=== PATIENT | male | born 1960 | race Asian ===

== ENCOUNTER → 2019-04-03 09:03 | Outpatient (CLI) | payer OTHER, SELFPAY ==
--- NOTE | 2019-04-03 | DI.CT.S_ITS ---
PROCEDURE: CT CHEST ABD PEL W CON INDICATIONS: PROSTATE CANCER TECHNIQUE: After the administration of oral and intravenous contrast, 5 mm thick sections acquired from the lung apices to the symphysis. 5 mm coronal and sagittal reformats were performed, with additional 7 mm coronal MIP reformats through the lungs. For radiation dose reduction, the following was used: automated exposure control, adjustment of mA and/or kV according to patient size. COMPARISON: MR, PELVIS W&W/O CONTRAST, 04/16/2013, 12:46. [facility], CR, CHEST 2 VIEW, 03/26/2012, 11:04. [facility], CT, CT IVP, 06/25/2018, 13:01. FINDINGS: Image quality: Excellent. CHEST: Lungs and pleura: No acute airspace opacities. No pleural effusions or pneumothorax. Central and peripheral airways appear patent and normal in caliber. Mediastinum: Heart size is normal. Trace pericardial effusion or pericardial thickening in anterior pericardium. No mediastinal or hilar adenopathy by size criteria. Thoracic aorta and central pulmonary arteries are normal in size. Esophagus is normal in caliber. Tiny hiatal hernia. Chest wall: No axillary or supraclavicular adenopathy by size criteria. Thyroid gland is normal. ABDOMEN: Solid organs: Liver is normal in size and enhancement. Gallbladder is normal. Biliary system is non dilated. Pancreas enhances normally. Spleen is normal in size and enhancement. No adrenal nodules. There are low density nodules in kidneys bilaterally, most likely diagnosis. Kidneys demonstrate normal size and enhancement, without hydronephrosis. Peritoneum and bowel: Bowel loops demonstrate normal wall thickness and caliber. No free fluid or air. Nodes and vessels: No retroperitoneal or mesenteric adenopathy by size criteria. Aorta and inferior vena cava are normal in size. Miscellaneous: No ventral hernias. PELVIS: Genitourinary: Bladder wall is thickened concentrically. Prostate is surgically absent. Miscellaneous: No inguinal hernias or adenopathy. Bones: No suspicious bony lesions. No vertebral body compression fractures. There is degenerative disc disease at L4-L5 with mild to moderate central canal stenosis. IMPRESSION: 1. Prostatectomy. No evidence for recurrent or metastatic disease. 2. Mild concentric bladder wall thickening may be secondary to chronic bladder outlet obstruction. 3. Bilateral low-density renal nodules are most likely renal cysts. 4. Trace pericardial effusion or pericardial thickening. Dictated by: Akash Serrano M.D. on 04/03/2019 at 12:12 Transcribed by: WARREN on 04/03/2019 at 12:26 Approved by: Akash Serrano M.D. on 04/03/2019 at 18:24
== END ==
PROVIDERS: PCP Internal Medicine; Visit Provider Urology
DX: C61 Malignant neoplasm of prostate (principal); N28.9 Disorder of kidney and ureter, unspecified
CPT/HCPCS: 71260; 74177; Q9967

== ENCOUNTER → 2019-04-05 09:23 | Outpatient (CLI) | payer OTHER, SELFPAY ==
--- NOTE | 2019-04-05 | DI.NM.S_ITS ---
PROCEDURE: NM BONE SCAN WHOLE BODY RADIOPHARMACEUTICAL: 21.1 mCi Tc-99m MDP IV. INDICATIONS: PROSTATE CANCER TECHNIQUE: Delayed whole-body scintigrams were obtained approximately 3-4 hours after intravenous injection of radiotracer. Anterior and posterior views were acquired from vertex to feet. COMPARISON: [facility], CT, CT CHEST ABD PEL W CON, 04/03/2019, 10:00. FINDINGS: No suspicious tracer activity. Bilateral knee and ankle tracer uptake is likely degenerative in nature. Physiologic tracer activity seen within the kidneys and bladder. IMPRESSION: No suspicious tracer activity. Dictated by: Mckay Maldonado M.D. on 04/05/2019 at 16:46 Approved by: Mckay Maldonado M.D. on 04/05/2019 at 16:53
== END ==
PROVIDERS: PCP Internal Medicine; Visit Provider Urology
DX: C61 Malignant neoplasm of prostate (principal)
CPT/HCPCS: 78306; A9503

== ENCOUNTER 2019-06-24 12:39 | Day surgery (SDC) | payer OTHER, SELFPAY ==
[2019-06-24] VITALS (8 sets, daily range): BP systolic 133–167; BP diastolic 67–104; PULSE 95–104; RESP 14–16; TEMP 36.1–36.5; O2SAT 92–99; BMI 31.2
--- NOTE | 2019-06-24 | PATH_ITS ---
[facility] Accession Number: [id number] . 01 Material submitted: . PART A: hepatic flexure - HEPATIC FLEXURE POLYP PART B: splenic flexure - SPLENIC FLEXURE POLYP 80 CM . 01 Clinical history: . SCREENING COLONOSCOPY ENCOUNTER FOR SCREENING FOR MALIGNANT NEOPLASM . 02 Diagnosis: A. Hepatic Flexure, Polyp: Tubular adenoma. . B. Splenic Flexure at 80 cm, Polyp: Colonic mucosa with prominent benign lymphoid aggregate. Negative for serrated lesion, dysplasia or malignancy. V 06/25/2019 1326 Local . 02 Electronically signed: . Maximus Reveles MD, PhD, Pathologist NPI- [id number] . 01 Gross description: . Part A: HEPATIC FLEXURE POLYP: Received in formalin is 1 fragment(s) of farrell, soft tissue measuring 1.1 x 0.4 x 0.3 cm which is entirely submitted and submitted entirely in 1 cassette(s) Part B: SPLENIC FLEXURE POLYP 80 CM: Received in formalin is 1 fragment(s) of farrell, soft tissue measuring 0.3 x 0.3 x 0.2 cm which is entirely submitted and submitted entirely in 1 cassette(s) /[facility] [place] 06/24/2019 2041 Local . 02 Pathologist provided ICD-10: D12.3, K63.5 . 02 CPT . 384873, [id number] Performed at: 01 [facility] [address] [place] [address], [place], [place] [id number] MD Mario Forde MD Phone: [phone] Performed at: [facility] [address] [place], [place] [id number] MD Jannie Johnson MD Phone: [phone]
[2019-06-24] MEDS: INSULIN ASPART 100 UNIT/ML 10ML VIAL SUBCUT (13:40)
[2019-06-24] MEDS: SODIUM CHLORIDE 0.9% 1,000 ML 200 ML IV (13:57)
--- NOTE | 2019-06-24 14:05 | SUR.PREOP ---
Dr Howell made aware of blood sugar of 260, insulin given as ordered, repeat CBG 255, no new orders recieved
--- NOTE | 2019-06-24 14:07 | PM.HP.1 ---
History of Present Illness History of Present Illness Date Patient Seen: 06/24/19 Time Patient Seen: 14:07 Chief complaint: [id number] SCREENING COLONOSCOPY Narrative: Asymptomatic patient here for a screening colonoscopy. He has had prior colonoscopy with no polyps discovered. Patient has well-controlled but rather severe diabetes type 2. Patient History Social History household members: spouse Family & Social History Social History: household members spouse Meds Home Medications and Allergies Home Medications Medication Instructions Recorded Confirmed Type MULTIVITAMIN (#MULTIPLE VITAMINS) 1 cap PO Q DAY #0 03/28/12 06/24/19 History atorvastatin 100 mg PO HS #0 03/28/12 06/24/19 History glipizide 10 mg PO Q DAY #0 03/28/12 06/24/19 History metformin [Glucophage XR] 500 mg PO BID #0 03/28/12 06/24/19 History venlafaxine [Effexor XR] 300 mg PO BID #0 03/28/12 History fenofibrate nanocrystallized 300 mg PO QDAY #0 05/10/17 06/24/19 History [Triglide] sennosides [senna] 50 mg PO BID PRN #0 05/10/17 06/24/19 History sitagliptin [Januvia] 100 mg PO QDAY #0 05/10/17 History trazodone 50 mg PO QDAY #0 05/10/17 History Lantus Solostar U-100 Insulin 25 unit SQ BID #0 05/12/17 06/24/19 History sitagliptin-metformin [Janumet] 1 tab PO BID #0 05/12/17 History amlodipine 10 mg PO DAILY 06/24/19 06/24/19 History insulin aspart U-100 [Novolog 8 unit SUBCUT BID 06/24/19 06/24/19 History Flexpen U-100 Insulin] Allergies Allergy/AdvReac Type Severity Reaction Status Date / Time No Known Drug Allergies Allergy Verified 06/24/19 08:47 Review of Systems Review of Systems ROS Unobtainable: All systems reviewed & are unremarkable except as noted in HPI and below Exam Vital Signs (past 8 hours): - 06/24/19 13:50 Temperature 97.7 F Pulse Rate 104 H Respiratory Rate 16 Blood Pressure 167/104 H Pulse Oximetry 99 Oxygen Delivery Method Room Air Narrative Exam Narrative: Patient is alert and oriented with no complaints Lungs are clear with no rales or wheezes Heart regular rhythm no murmur Abdomen soft no organomegaly no tenderness Rectal be done at time of colonoscopy Assessment & Plan Assessment & Plan narrative: Patient is here for screening colonoscopy his admission blood sugar was 260 and I gave him 5 units of rapidi acting insulin subcu and his sugar is coming down now it is 255 20 minutes after receiving his insulin dose. We will proceed with planned screening colonoscopy.
[2019-06-24] MEDS: fentaNYL 250 MCG/5 ML INJ IV (14:28)
[2019-06-24] MEDS: MIDAZOLAM 5 MG/5 ML VIAL IV (14:29)
--- NOTE | 2019-06-24 14:43 | PM.OP.ENDO ---
Operative Date/Time/Diagnoses Date of procedure: 06/24/19 Time of procedure: 14:43 Pre-op diagnosis: Screening colonoscopy Post-op diagnosis: other (Two polyps were identified 1 at the hepatic flexure proximally 7 mm in diameter excised and submitted 2nd was 3 mm in diameter at the splenic flexure approximately 80 cm also removed and submitted) Procedure & Clinicians Study performed: Total colonoscopy to the cecum with polypectomy at 80 cm splenic flexure and hepatic flexure Same procedure as scheduled: Yes Surgeon: Olaf Howell Procedure Notes SCOAP/Timeout: Was done Procedure in detail: The patient was properly identified during surgical pause throughout procedure he was given a total of 4 mg of Versed and 250 micro g of fentanyl and he remained comfortable. The flexible fiberoptic colonoscope was inserted transanally to the cecum. In the splenic flexure at approximately 80 cm there was a 3-4 mm polyp removed with the cold forceps and submitted. In the hepatic flexure there was a 7 mm polyp on a short stalk and it was removed with a cold snare. This polyp was also submitted. No other abnormalities were encountered. Patient tolerated this procedure very well. Scope withdrawal time: 15 Sedation minutes: 28 Findings: polyp Specimen(s): other (Two polyps 1 at 80 cm the other at the hepatic flexure were submitted) Complications: none Post-procedure Recommendations: Colonscopy in 3 years Disposition: PACU
--- NOTE | 2019-06-24 15:22 | SUR.PHASEII ---
Dr. Osorio notified pt's cbg 253, no new orders. Pt tolerating apple juice.
== END 2019-06-24 15:27 | disposition home or self-care (01) ==
PROVIDERS: PCP Internal Medicine; Visit Provider Surgery
PROC: 0DJD8ZZ Inspection of Lower Intestinal Tract, Via Natural or Artificial Opening Endoscopic (ICD-10-PCS; CPT 45378; principal; 2019-06-24 14:45)
DX: Z12.11 Encounter for screening for malignant neoplasm of colon (principal); E11.9 Type 2 diabetes mellitus without complications; Z79.4 Long term (current) use of insulin; K63.5 Polyp of colon; D12.6 Benign neoplasm of colon, unspecified
CPT/HCPCS: 45385; 45380; 99152; J2250; J3010